=== PATIENT | male | born 1955 | race Caucasian/White ===

== ENCOUNTER → 2020-04-14 14:52 | Outpatient (CLI) | payer MEDICARE, BC, SELFPAY ==
--- NOTE | ~2020-04-14 | MR_ITS ---
EXAMINATION: MR elbow RT wo con DATE: 04/14/2020 17:16 INDICATION: Right elbow pain TECHNIQUE: Magnetic resonance imaging (MRI) of the right elbow was performed without intravenous cont rast. Sequences included coronal, axial, and sagittal PD-weighted FS FSE and coronal, axial, and sagi ttal PD-weighted FSE. COMPARISON: None FINDINGS: Osseous/other: Normal alignment. Normal marrow signal with no marrow edema, fracture, osteochondral lesion or patho logic marrow replacing process. Mild osteoarthritis with mild nonuniform partial thickness cartilage loss and tiny marginal osteophytes. Tiny degenerative subarticular cyst at the radial head along its articulation with the proximal ulna. Tendons: Partial-thickness tear of the distal biceps brachii tendon with approximately 2.5 cm retraction of th e torn portion of the tendon which has a lax wavy appearance in the distal forearm. The remaining int act portion of the tendon appears to comprise no greater than one third of the total cross-sectional area of the tendon. Triceps and brachialis tendons are normal. Common flexor tendon wad is normal. M ild tendinopathy and tiny intrasubstance tear at the lateral epicondylar origin of the common extenso r tendon wad. Ligaments: The medial and lateral collateral ligament complexes are normal. Cubital tunnel: Cubital tunnel is unremarkable with normal signal and caliber of the ulnar nerve. Fluid: Physiologic amount of fluid the elbow joint. Prominent soft tissue edema centered about the torn alec ps tendon at the anterior aspect of the distal upper arm. IMPRESSION: 1. High-grade partial tear of the distal biceps brachii tendon. 2. Mild tendinopathy and tiny partial-thickness tear at the origin of the common extensor tendon wad. 3. Mild osteoarthritis at the right elbow. Reviewed, dictated and finalized at location A. IMPRESSION: 1. High-grade partial tear of the distal biceps brachii tendon. 2. Mild tendinopathy and tiny partial-thickness tear at the origin of the commo n extensor tendon wad. 3. Mild osteoarthritis at the right elbow.
== END ==
PROVIDERS: PCP Internal Medicine; Visit Provider Nurse Practitioner Family
DX: M19.021 Primary osteoarthritis, right elbow (principal)
CPT/HCPCS: 73221

== ENCOUNTER 2020-09-08 14:27 | Outpatient (CLI) | payer MEDICARE, BC, SELFPAY ==
--- NOTE | 2020-09-08 | ECG_ITS ---
Measurements Intervals [place] Rate: 81 P: 59 DC: 156 QRS: 64 QRSD: 106 T: 53 QT: 379 QTc: 441 Interpretive Statements SINUS RHYTHM POSSIBLE LEFT VENTRICULAR HYPERTROPHY MINIMAL Q WAVES- INF/LAT LEADS BORDERLINE ECG Electronically Signed On 09-08-2020 14:53:38 CLINICAL BIOCHEMIST by Domenic Rubio D.O.
== END 2020-09-08 14:28 | disposition home or self-care (01) ==
LOC: ANHLAB 14:31
PROVIDERS: PCP Internal Medicine; Visit Provider Internal Medicine
DX: R03.0 Elevated blood-pressure reading, without diagnosis of hypertension (principal); R94.31 Abnormal electrocardiogram [ECG] [EKG]
CPT/HCPCS: 93005

== ENCOUNTER 2022-04-18 10:25 | Outpatient (CLI) | payer MEDICARE, BC, SELFPAY ==
--- NOTE | ~2022-04-18 | MR_ITS ---
EXAMINATION: MR MRCP wo/w con/w 3D wo ind DATE: 04/18/2022 12:40 INDICATION: Lesion of pancreas. TECHNIQUE: Magnetic resonance imaging (MRI) of the abdomen was performed without and with 20 mL Multi Anabell intravenous contrast. Sequences included coronal T2-weighted FS FSE, coronal T2-weighted FSE, a xial T1-weighted LAVA, coronal FS FIESTA, axial dual-echo T1-weighted SPGR, coronal lava-FLEX, sagitt al T2-weighted FSE, axial T2-weighted FSE, and axial DWI. Thick-slab T2-weighted FSE images were obta ined for magnetic resonance cholangiopancreatography (MRCP). Maximum intensity projection 3-D reconst ructions of the volumetric data were created by the technologist. Postcontrast sequences included cor onal LAVA-flex and time course of axial T1-weighted LAVA. COMPARISON: None. FINDINGS: ABDOMEN MRI: There are cysts in the liver measuring up to 2.5 cm. The gallbladder, spleen, pancreas, and left adrenal gland are normal. There is a 2.0 cm mass in right adrenal gland containing microscop ic fat, consistent with an adenoma. There are cysts in the kidneys measuring up to 5.6 cm the left. T here are no dilated loops of bowel. There are no pathologically enlarged lymph nodes. There is no maryellen e intraperitoneal fluid. 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 ABDOMEN MRCP: The common duct is normal and measures 3 mm. No choledocholithiasis. IMPRESSION: 1. Normal pancreas. Reviewed, dictated and finalized at location A. IMPRESSION: 1. Normal pancreas.
== END 2022-04-18 10:26 | disposition home or self-care (01) ==
LOC: ANHIMG 10:26
PROVIDERS: PCP Internal Medicine; Visit Provider Internal Medicine
DX: K86.9 Disease of pancreas, unspecified (principal)
CPT/HCPCS: 74183; 76376; A9577